=== PATIENT | male | born 1960 | race Caucasian/White ===

== ENCOUNTER 2021-08-03 10:16 | Outpatient (CLI) | payer OTHER, SELFPAY ==
[2021-08-03 11:16] LABS: Magnesium 2.1 mg/dL (1.6-2.3)
[2021-08-03 11:33] LABS: Free T4 Free Thyroxine 0.82 ng/mL (0.78-2.19)
== END 2021-08-03 10:17 | disposition home or self-care (01) ==
LOC: ANHLAB 10:23
PROVIDERS: PCP Family Medicine Adolescent Medicine; Visit Provider Internal Medicine Cardiovascular Disease
DX: I49.3 Ventricular premature depolarization (principal); R68.89 Other general symptoms and signs; R06.00 Dyspnea, unspecified; R06.81 Apnea, not elsewhere classified
CPT/HCPCS: 36415; 83735; 84439; 84443

== ENCOUNTER 2023-06-04 00:28 | Day surgery (SDC) | payer OTHER, SELFPAY ==
[2023-06-03 15:36] VITALS: BMI 28.3
[2023-06-04] VITALS (10 sets, daily range): BP systolic 124–172; BP diastolic 83–100; PULSE 56–60; RESP 13–18; TEMP 36.6; O2SAT 98–100; BMI 28.3
[2023-06-04 07:21] LABS: Basophils Absolute Auto 0.1 K/mm3 (0.0-0.1); Basophils Percent Auto 2.2 % (0.2-1.2); Eosinophils Absolute Auto 0.3 K/mm3 (0-0.3); Eosinophils Percent Auto 4.8 % (0-4.4); Hematocrit 44.1 % (42.0-52.0); Hemoglobin 14.8 g/dL (14.0-18.0); Immature Granulocyte Absolute 0.02 K/mm3 (0.00-0.031); Immature Granulocyte Percent A 0.3 % (0-0.5); Lymphocytes Absolute Auto 2.04 K/mm3 (0.9-3.2); Lymphocytes Percent Auto 31.4 % (18.3-44.2); Mean Corpuscular HGB Conc 33.6 g/dl (32-36); Mean Corpuscular Hemoglobin 30.3 pg (26-34); Mean Corpuscular Volume 90.2 fl (80-100); Mean Platelet Volume 9.8 fl (7.4-10.4); Monocytes Absolute Auto 0.6 K/mm3 (0.1-0.6); Monocytes Percent Auto 8.8 % (2.6-8.5); Neutrophils Absolute Auto 3.4 K/mm3 (1.3-6.7); Neutrophils Percent Auto 52.5 % (45.5-73.1); Platelet Count Result 256 k/mm3 (150-375); Red Blood Count 4.89 M/mm3 (4.6-6.20); Red Cell Distribution Width 12.7 % (11.5-14.5); White Blood Count 6.5 K/mm3 (4.5-10.0)
[2023-06-04 07:31] LABS: Anion Gap 6 mmol/L (8-16); Blood Urea Nitrogen 20 mg/dL (9-20); Carbon Dioxide 25 mmol/L (22-30); Chloride 105 mmol/L (98-107); Estimated CRCL calculation 113 ml/min; Estimated Glomerular Filt Rate > 60; Glucose 112 mg/dL (65-110); Potassium 4.4 mmol/L (3.4-5.0); Sodium 136 mmol/L (137-145)
[2023-06-04] MEDS: CLOPIDOGREL BISULFATE 300 MG TABLET 600 MG (08:11)
--- NOTE | 2023-06-04 08:35 | PM.IMHP ---
H&P: HPI History of Present Illness Date/Time: 06/04/23 08:35 Chief Complaint: Outpatient cath Narrative: Patient presents for outpatient elective cardiac catheterization. Patient is a 62 year old male with mild CAD per coronary CTA 10/2021, hyperlipidemia who is referred for coronary angiography for frequent PVCs. Exercise stress echo was negative for ischemia but he did have frequent PVCs including ventricular bigeminy during exercise. Patient denies chest pain, shortness of breath; otherwise feeling well this morning. Review of Systems Review of Systems: All systems reviewed & are unremarkable except as noted in HPI and below (HPI) [facility] Past Medical History Medical History Hx of nasal polyp Family History Family History Mother Cerebrovascular accident Heart disease Hypertension Father Lung cancer Social History Social History Smoking packs per day: 1 Smoking cigarettes per day: 20.0 Years smoked: 10 Smoking pack-years: 10.00 Smoking status: Former smoker Tobacco type: cigarettes Second hand tobacco smoke exposure: No Smoking end date: 09/29/09 Alcohol intake: current Drinks per week: 10 Alcohol use details: 6-8 drinks/week Substance use: never Substance use type: does not use Living arrangements: alone Occupation/Education: occupation Gender identity (if verbalized by the patient): Male Spiritual care concerns: No Agree to blood products: Yes Meds Home Medications and Allergies Home Medications Medication Instructions Recorded Confirmed Type metoprolol tartrate 25 mg tablet 25 mg PO BID 12/25/21 06/03/23 History rosuvastatin 10 mg tablet 10 mg PO DAILY 12/25/21 06/03/23 History aspirin 81 mg chewable tablet 81 mg PO DAILY 06/03/23 06/03/23 History Allergies Allergy/AdvReac Type Severity Reaction Status Date / Time No Known Allergies Allergy Verified 06/04/23 07:09 Vital Signs Vital Signs - 24 hr 06/04/23 07:10 Temperature 36.6 C Pulse Rate 60 Respiratory Rate 16 Blood Pressure 153/96 H Pulse Oximetry 98 Oxygen Delivery Room Air Exam Const: General: comfortable and no acute distress HENMT: Mouth: Yes moist mucous membranes Eyes: General: appearance normal, both eyes and all related structures Sclera: sclerae normal Neck: Neck: supple Resp: Effort & Inspection: normal respiratory effort Auscultation: clear to auscultation bilaterally Cardio: Rate: regular rate Rhythm: regular rhythm Heart sounds: no murmurs Skin: General skin exam: normal color Neuro: Speech: normal speech Psych: Mental Status: mental status grossly normal Affect: normal affect H&P: Results Labs Labs: Short CBC 06/04/23 Range/Units 07:08 WBC 6.5 (4.5-10.0) K/mm3 Hgb 14.8 (14.0-18.0) g/dL Hct 44.1 (42.0-52.0) % Plt Count 256 (150-375) k/mm3 BMP 06/04/23 07:07 Sodium 136 L Potassium 4.4 Chloride 105 Carbon Dioxide 25 BUN 20 Creatinine 0.70 Glucose 112 H Calcium 9.0 Assessment and Plan Assessment and plan (1) PVCs (premature ventricular contractions): Code(s): I49.3 - Ventricular premature depolarization Status: Acute Plan Coronary angiography, left heart cath discussed with the patient, including procedure details, indication for procedure, risks vs benefits. Written informed consent obtained. Proceed with [facility].
--- NOTE | 2023-06-04 08:39 | WPDMODSED ---
Moderate Sedation Note-Pt Data Patient Data Diagnosis: Frequent PVCs Present Complaint: Frequent PVCs Procedure to be performed/Plan: Coronary angiography, left heart cath, +/- PCI Allergies Allergy/AdvReac Type Severity Reaction Status Date / Time No Known Allergies Allergy Verified 06/04/23 07:09 Home Medications Medication Instructions Recorded Confirmed Type metoprolol tartrate 25 mg tablet 25 mg PO BID 12/25/21 06/03/23 History rosuvastatin 10 mg tablet 10 mg PO DAILY 12/25/21 06/03/23 History aspirin 81 mg chewable tablet 81 mg PO DAILY 06/03/23 06/03/23 History Current Medications: Active Medications Sodium Chloride (Normal Saline Iv) 500 mls @ 100 mls/hr IV CONT .Q5H NOÉ Sedation/Anesthesia: No previous sedation/anesthesia problems (including family history). PMFSH Past Medical History Medical History Hx of nasal polyp Family History Family History Mother Cerebrovascular accident Heart disease Hypertension Father Lung cancer Social History Social History Smoking packs per day: 1 Smoking cigarettes per day: 20.0 Years smoked: 10 Smoking pack-years: 10.00 Smoking status: Former smoker Tobacco type: cigarettes Second hand tobacco smoke exposure: No Smoking end date: 09/29/09 Alcohol intake: current Drinks per week: 10 Alcohol use details: 6-8 drinks/week Substance use: never Substance use type: does not use Living arrangements: alone Occupation/Education: occupation Gender identity (if verbalized by the patient): Male Spiritual care concerns: No Agree to blood products: Yes Mod Sed Physical Exam Physical Exam Pre Procedural Exam: Normal: Appearance, Lungs, Heart Rate, Heart Rhythm, Neuro Exam, Abdomen, Extremities and Skin Hours since solid foods: 12 Hours since liquid intake: 8 Mallampati Classification: class III Internal Medicine - PN: Obj Da Vital Signs Vital Signs: Vital Signs - 24 hr 06/04/23 07:10 Temperature 36.6 C Pulse Rate 60 Respiratory Rate 16 Blood Pressure 153/96 H Pulse Oximetry 98 Oxygen Delivery Room Air Meds/Results Medications: Active Medications Generic Name Dose Route Start Last Admin Trade Name Freq PRN Reason Stop Dose Admin Sodium Chloride 500 mls @ 100 mls/hr 06/04/23 07:00 Normal Saline Iv IV CONT .Q5H NOÉ Labs 06/04/23 07:08 06/04/23 07:07 Labs: Laboratory Results - last 24 hr 06/04/23 06/04/23 07:07 07:08 WBC 6.5 RBC 4.89 Hgb 14.8 Hct 44.1 MCV 90.2 MCH 30.3 MCHC 33.6 RDW 12.7 Plt Count 256 MPV 9.8 Immature Gran % (Auto) 0.3 Neut % (Auto) 52.5 Lymph % (Auto) 31.4 [place] % (Auto) 8.8 H Eos % (Auto) 4.8 H Baso % (Auto) 2.2 H Lymph # (Auto) 2.04 [place] # (Auto) 0.6 Eos # (Auto) 0.3 Baso # (Auto) 0.1 Abs Immat Gran (auto) 0.02 Absolute Neuts (auto) 3.4 Absolute Nucleated RBC 0.0 Nucleated RBC % 0.0 Sodium 136 L Potassium 4.4 Chloride 105 Carbon Dioxide 25 Anion Gap 6 L BUN 20 Creatinine 0.70 Estim Creat Clear Calc 113 Estimated GFR > 60 Glucose 112 H Calcium 9.0 ASA Classification/Sedation ASA Classification/Sedation ASA Class: II Emergent: No Risks: Risks, benefits and alternatives explained and patient/family accepted plan for sedation. Patient re-evaluated immediately prior to sedation.
--- NOTE | 2023-06-04 08:40 | WPDCARDPROC ---
Cardiac Cath Procedure Note Date of procedure:: 06/04/23 Performing physician:: CATHETERIZATION LABORATORY REPORT Procedure Date: 06/04/2023 Tissue Rewinder: Afshin Stevens M.D., [facility]? Referring Physician: Tony Paulson M.D. ? Anesthesia: Versed and Fentanyl were ordered and given in my presence at 08:51, procedure ended at 09:19. Supervision of nurse monitored moderate sedation with Versed and Fentanyl was provided for 28 minutes. Total of Versed 2mg and Fentanyl 50mcg were administered by the Rn Mobile RN Angie Coles. Pre-op Diagnosis: Coronary artery disease Post-op Diagnosis: 1. Non-obstructive coronary arteries 2. Elevated left ventricular end-diastolic pressure of 34mmHg Procedure(s): Left heart catheterization with coronary angiography Access Site: Right radial artery Brief History and Clinical Indications: Patient is a 62 year old male who is referred for coronary angiography for frequent PVCs. All risks, benefits and alternatives to left heart catheterization with or without percutaneous coronary intervention was discussed at length with the patient. Risk of complications including but not limited to bleeding, infection, arrhythmia, stroke, worsening kidney function, blood loss, groin hematoma, limb loss, emergency coronary artery bypass grafting, and even were discussed with the patient and all questions were answered. The patient understood and wished to proceed. Time out called, patient name, date of , medical record number, allergies, procedure performed, identify Tissue Rewinder, patient and staff member concurred with accurate data, procedure carried on. Findings: LEFT HEART CATHETERIZATION FINDINGS: 1. Left main: The left main coronary artery is widely patent without any significant obstructive disease. 2. Left anterior descending: The LAD and the diagonal branches have mild luminal irregularities without any significant obstructive angiographic disease. 3. Left circumflex: The left circumflex artery and the main marginal branches have mild luminal irregularities without any significant obstructive angiographic disease. 4. Right coronary artery: The RCA has luminal irregularities without any significant obstructive angiographic disease. The RCA is the dominant vessel. 5. Left ventricle: A. End-diastolic pressure 34mmHg. B. LV gram deferred. C. No significant gradient across aortic valve on catheter pullback. Description of Procedure: Informed consent signed and placed in the chart. Patient transferred to lab support tech room. Prepped and draped in usual sterile fashion. 2% lidocaine injected subcutaneously in right wrist area. 22-gauge venipuncture catheter used to access the right radial artery under ultrasound guidance. 6-FR slender sheath placed in right radial artery. Nitroglycerine and Verapamil were given intraarterial through the sheath. Versacore wire advanced under fluoroscopy 5F Tig 4 diagnostic catheter engaged Left Main Coronary Artery. 5F FR 4 diagnostic catheter engaged Right Coronary Artery Multiple orthogonal angiogram obtained and reviewed 5F Pigtail diagnostic catheter crossed aortic valve to obtain LVEDP, LV angiogram deferred. Hemostasis was achieved by application of TR band. ? Assessment: Post-op Diagnosis: 1. Non-obstructive coronary arteries 2. Elevated left ventricular end-diastolic pressure of 34mmHg Post Operative Condition: Stable No significant blood loss Disposition: Home Plan: The patient will be monitored in the recovery area. Discharge home after post cath bed rest is completed. The above findings were discussed with the referring physician. Continue aggressive medical therapy and risk factor modification. ? Afshin Stevens M.D. Interventional Cardiology
--- NOTE | 2023-06-04 12:00 | SUR.PHASEII ---
1200. BP 160/100. Pt voices no c/o. Called & spoke with Dr Stevens. Dr Stevens wants pt to follow up with Dr Paulson earlier than previously scheduled. This rn informed pt to call HCG office to schedule earliest appointment with Dr Paulson for blood pressure check. Also RN informed pt that the high blood pressure could be the result of hunger or just being present in the hospital, encouraged pt to obtain BP cuff ([facility], etc) and take and record BPs every morning, noon and evening and take results to Dr Paulson's next appointment. This rn informed pt that he could have his ride stop at [place] down the street, pt states that he's going to see about that later.
== END 2023-06-04 12:21 | disposition home or self-care (01) ==
PROVIDERS: PCP Family Medicine Adolescent Medicine; Visit Provider Internal Medicine
PROC: 4A023N7 Measurement of Cardiac Sampling and Pressure, Left Heart, Percutaneous Approach (ICD-10-PCS; CPT 93452; principal; 2023-06-04 08:30)
DX: I49.3 Ventricular premature depolarization (principal); I25.10 Atherosclerotic heart disease of native coronary artery without angina pectoris; Z79.82 Long term (current) use of aspirin; Z87.891 Personal history of nicotine dependence
CPT/HCPCS: 36415; 80048; 85025; 93458; A9270; C1769; C1887; C1894; J1644; J2250; J2305; J3010; J7040

== ENCOUNTER 2023-08-06 14:56 | Outpatient (CLI) | payer OTHER, SELFPAY ==
--- NOTE | ~2023-08-06 | XR_ITS ---
EXAMINATION: [id number] DATE: 08/06/2023 15:46 INDICATION: Neck pain. TECHNIQUE: 5 views of the cervical spine including standing views were obtained. COMPARISON: None. FINDINGS: There is 7 degrees levocurvature of cervicothoracic spine. Vertebral body heights are pablo l. There is mildly decreased disc height at C5-C6 and C6-C7. There is multilevel facet joint osteoart hritis, severe on the right at C3-C4 and C5-C6. No central canal stenosis or prevertebral soft tissue swelling. IMPRESSION: 1. Mild cervical spondylosis. Reviewed, dictated and finalized at location E. T PARTNER
== END 2023-08-06 14:57 ==
LOC: MICIMG 14:57
PROVIDERS: PCP Nurse Practitioner Family; Visit Provider Nurse Practitioner Family
DX: M47.812 Spondylosis without myelopathy or radiculopathy, cervical region (principal); M54.2 Cervicalgia
CPT/HCPCS: 72040

== ENCOUNTER 2023-09-11 15:47 | Outpatient (CLI) | payer OTHER, SELFPAY ==
--- NOTE | ~2023-09-11 | US_ITS ---
EXAMINATION: US aorta DATE: 09/11/2023 16:18 INDICATION: Abdominal pain. TECHNIQUE: Grayscale, color Doppler, and pulsed Doppler images of the aorta and common iliac arteries were obtained. COMPARISON: Chest CT 10/12/2018 FINDINGS: The aorta is normal in outer diameter. There is mild aortic atherosclerosis. The right common iliac a rtery is normal in caliber. The left common iliac artery is normal in caliber. IMPRESSION: 1. Aortic atherosclerosis. No aneurysm. Reviewed, dictated and finalized at location A. BAKER
== END 2023-09-11 15:48 ==
LOC: MICIMG 15:49
PROVIDERS: PCP Nurse Practitioner Family; Visit Provider Internal Medicine Cardiovascular Disease
DX: I70.0 Atherosclerosis of aorta (principal); Z87.891 Personal history of nicotine dependence
CPT/HCPCS: 76775

== ENCOUNTER 2025-08-10 11:02 | Outpatient (CLI) | payer MEDICARE, SELFPAY ==
--- NOTE | ~2025-08-10 | US_ITS ---
EXAMINATION: US soft tissue UE RT, 08/10/2025 11:05 MARKETING DEVELOPMENT MANAGER HISTORY: R22.9 - Localized swelling, mass and lump, unspecified Comparison: None Technique: Zamorano-scale and color Doppler images were obtained. Findings: Correlating with the palpable area there is a solid focus measuring 6.1 x 2.1 x 5.2 cm, no increased flow. IMPRESSION: Probable lipoma. If there is pain in this location or clinical concern CT or MRI recommended Reviewed, dictated and finalized at location P. ETING DEVELOPMENT MANAGER IMPRESSION: Probable lipoma. If there is pain in this location or clinical conc burak CT or MRI recommended
== END 2025-08-10 11:03 | disposition home or self-care (01) ==
LOC: MICIMG 11:03
PROVIDERS: PCP Surgery; Visit Provider Surgery
DX: R22.31 Localized swelling, mass and lump, right upper limb (principal)
CPT/HCPCS: 76882

== ENCOUNTER 2025-09-20 10:08 | Outpatient (CLI) | payer MEDICARE, SELFPAY ==
--- NOTE | ~2025-09-20 | MR_ITS ---
EXAMINATION: MR elbow RT wo con DATE: 09/20/2025 11:08 INDICATION: Localized swelling, mass or lump at the right elbow TECHNIQUE: Magnetic resonance imaging (MRI) of the right elbow was performed without intravenous contrast. Sequences included coronal, axial, and sagittal PD-weighted FS FSE and coronal, axial, and sagittal PD-weighted FSE. COMPARISON: None FINDINGS: Osseous/other: Normal alignment. There is mild osteoarthritis at the right elbow with small focus of high-grade chondral malacia along the posterior capitellum with chondral ulceration with underlying small degenerative subchondral cyst. Small low signal intensity bone islands at the radial head and medial humeral condyle. Otherwise normal marrow signal with no marrow edema, fracture, osteochondral lesion or pathologic marrow replacing process. Macroscopic fat signal intensity and fat saturating lipoma at the anterior distal humerus which measures 5.8 x 5.1 x 1.4 cm. The lipoma appears to arise deep to the peripheral muscular fascia of the distal right biceps brachii muscle belly. Tendons: Triceps, biceps brachii and brachialis tendons are normal. Common flexor tendon wad is normal. The common extensor tendon wad is normal. Ligaments: The medial and lateral collateral ligament complexes are normal. Cubital tunnel: Cubital tunnel is unremarkable with normal signal and caliber of the ulnar nerve. Fluid: Physiologic amount of fluid the elbow joint. IMPRESSION: 1. 5.8 x 5.1 x 1.4 cm lipoma at the anterior distal right upper arm likely arising deep to the superficial fascia of the distal biceps brachii muscle belly. Reviewed, dictated and finalized at location A. LLOGRAPH TECHNICIAN IMPRESSION: 1. 5.8 x 5.1 x 1.4 cm lipoma at the anterior distal right upper arm likely maricarmen ing deep to the superficial fascia of the distal biceps brachii muscle belly.
== END 2025-09-20 10:09 | disposition home or self-care (01) ==
PROVIDERS: PCP Nurse Practitioner Family; Visit Provider Surgery
DX: D17.21 Benign lipomatous neoplasm of skin and subcutaneous tissue of right arm (principal)
CPT/HCPCS: 73221